=== PATIENT | male | born 1975 | race Caucasian/White ===

== ENCOUNTER 2020-02-11 13:50 | Emergency (ER) | payer MEDICAID, OTHER ==
[~2020-02-11] VITALS: Ht 177.8 cm; Wt 75.0 kg
[2020-02-11] MEDS ORDERED: ONDANSETRON 2MG/ML, 2ML IVPush ONE (14:00)
[2020-02-11] MEDS ORDERED: SODIUM CHLORIDE FLUSH 10ML SYR IVF ONE (14:00)
[2020-02-11] MEDS ORDERED: HYDROmorphone 1 MG/ML, 1ML INJ IVPush PRN (14:00)
[2020-02-11] MEDS ORDERED: HYDROmorphone 1 MG/ML, 1ML INJ ONE (14:02)
[2020-02-11] MEDS ORDERED: ONDANSETRON 2MG/ML, 2ML ONE (14:03)
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
--- NOTE | 2020-02-11 14:16 | NUR ---
PATIENT TO IMAGING.
--- NOTE | 2020-02-11 14:57 | NUR ---
ERMD AT BEDSIDE FOR SHOULDER REDUCTION, PATIENT TOLERATED PROCEDURE WELL. SHOULDER IMMOBILZER PLACED.
[2020-02-11 15:56] VITALS: BP 107/75
--- NOTE | 2020-02-11 16:19 | NUR ---
Patient given discharge instructions and prescription and they have confirmed that they understand the instructions, no questions. Patient ambulatory with steady gait to discharge desk.
== END 2020-02-11 16:20 | disposition home or self-care (01) ==
LOC: ED 15:17
DX: S43.005A Unspecified dislocation of left shoulder joint, initial encounter (principal); S80.812A Abrasion, left lower leg, initial encounter; R07.9 Chest pain, unspecified; F17.200 Nicotine dependence, unspecified, uncomplicated; W11.XXXA Fall on and from ladder, initial encounter; Y93.89 Activity, other specified; Y92.098 Other place in other non-institutional residence as the place of occurrence of the external cause; Y99.8 Other external cause status
CPT/HCPCS: 23650; 71046; 73030; 93005; 96374; 96375; 99284; J1170; J2405; 99285